=== PATIENT | male | born 1955 | race Caucasian/White ===

== ENCOUNTER 2018-07-03 11:24 | Emergency (ER) | payer BC ==
[~2018-07-03] VITALS: Ht 170.2 cm; Wt 81.6 kg
[2018-07-03] MEDS ORDERED: SIMVASTATIN20 MG (11:52)
[2018-07-03] MEDS ORDERED: ASPIRIN81 MG (11:52)
== END 2018-07-03 16:35 | disposition home or self-care (01) ==
LOC: ER 11:24
DX: H66.91 Otitis media, unspecified, right ear (principal); H92.01 Otalgia, right ear